=== PATIENT | male | born 1985 | race Caucasian/White ===

== ENCOUNTER → 2016-11-15 | Outpatient (CLI) | payer OTHER ==
[~2016-11-15] VITALS: Ht 180.3 cm; Wt 105.8 kg
[~2016-11-15] MED LIST: BACLOFEN 10MG T10 MG PO; BACLOFEN20 MG PO; CLARITIN10 MG PO; CYCLOBENZAPRINE5 MG PO; FLEXERIL PO; HYDROCHLOROTHIA25 M2 PO; HYDROCODON-ACE1 EAC7 PO; HYDROCODONE-APA1 TA1 PO; IBUPROFEN 800800 M1 PO; INDERAL XL80 MG PO; LIORESAL 10 MG10 MG PO; NAPROSYN500 MG PO; NEURONTIN 300300 M1 PO; NORCO 5-325 TA1 EACH PO; PERCOCET; PERCOCET 5-3251 EACH PO; PERCOCET PO; PINDOLOL5 MG PO; PROZAC20 MG PO; TECFIDERA240 MG PO; TIZANIDINE HCL4 MG PO; TRAZODONE HCL100 MG PO; XANAX 0.25 MG0.25 MG PO; ZANAFLEX4 MG PO
[2016-11-15 08:57] VITALS: BP 117/68
== END | disposition home or self-care (01) ==
LOC: PAIN 07:20
DX: M54.16 Radiculopathy, lumbar region (principal)